=== PATIENT | male | born 1995 | race American Indian/Alaskan Native ===

== ENCOUNTER 2017-11-02 23:25 | Emergency (ER) | payer SELFPAY ==
[2017-11-03 00:36] LABS: Basophils % (Auto) 0.4 % (0.0-1.8); Eosinophils # (Auto) 0.1 K/mm3 (0.0-0.4); Eosinophils % (Auto) 1.8 % (0.0-4.3); Hematocrit 41.5 % (35.5-45.6); Hemoglobin 14.3 gm/dl (11.8-15.2); Lymphocytes # (Auto) 1.7 K/mm3 (1.2-5.4); Mean Corpuscular HGB Conc 34 % (32-34); Mean Corpuscular Hemoglobin 32 pg (28-32); Mean Corpuscular Volume 94 fl (84-94); Monocytes # (Auto) 0.4 K/mm3 (0.0-0.8); Platelet Count 240 K/mm3 (140-440); Red Blood Count 4.42 M/mm3 (3.65-5.03); Red Cell Distribution Width 12.2 % (13.2-15.2)
--- NOTE | 2017-11-03 00:37 | Emergency Department Report ---
HPI - General Time Seen by Provider: 11/03/17 00:07 - [facility] HPI: [place] [address] The patient is a 22-year-old male presenting with chief complaint of suicidal ideation. The patient states he intentionally overdose on twelve 25 mg tablets of hydroxyzine at 21:00. Patient denies any other coingestants. The patient states the medication belonged to his mother. The patient states she's been feeling suicidal for 1 day. Patient denies complaints except for mild headache. The patient's mother (Nuvia Sam [phone]) states the patient has a history of suicide attempt 3 years ago by overdosing on vitamins. Location: Mental state Duration: [See above] Quality: Suicidal Severity: Severe Modifying factors: [see above] Context: [see above] Mode of transportation: [not driving] ED Past Medical Hx - Past Medical History Previous Medical History?: No - Surgical History Past Surgical History?: No - Family History Family history: no significant - Social History Smoking Status: Never Smoker Substance Use Type: None - Medications Home Medications: Home Medications Medication Instructions Recorded Confirmed Last Taken Type levoFLOXacin [Levaquin TAB] 500 mg PO QDAY #7 tablet 11/03/17 Unknown Rx ED Review of Systems ROS: Stated complaint: SUICIDAL Other details as noted in HPI Constitutional: no symptoms reported Eyes: denies: eye pain ENT: denies: throat pain Respiratory: no symptoms reported Cardiovascular: denies: chest pain Endocrine: no symptoms reported Gastrointestinal: denies: abdominal pain Genitourinary: denies: dysuria Musculoskeletal: denies: back pain Neurological: headache Psychiatric: suicidal thoughts Physical Exam - Physical Exam Physical Exam: GENERAL: The patient is well-developed well-nourished male lying on stretcher not appearing to be in acute distress. [] HEENT: Normocephalic. Atraumatic. Extraocular motions are intact. Patient has moist mucous membranes. NECK: Supple. No meningitic signs are noted. Trachea midline CHEST/LUNGS: Clear to auscultation. There is no respiratory distress noted. HEART/CARDIOVASCULAR: Regular. There is no tachycardia. There is no gallop rub or murmur. ABDOMEN: Abdomen is soft, nontender. Patient has normal bowel sounds. There is no abdominal distention. SKIN: There is no rash. There is no edema. There is no diaphoresis. NEURO: The patient is awake, alert, and oriented. The patient is cooperative. The patient has no focal neurologic deficits. The patient has normal speech. Cranial nerves II 12 grossly intact, no drift MUSCULOSKELETAL: There is no evidence of acute injury. ED Course - Consultations Consultation #1: 11/03/17 00:49 Poison control called ED Medical Decision Making - Lab Data Result diagrams: 11/03/17 00:25 11/03/17 00:25 Laboratory Tests 11/03/17 11/03/17 11/03/17 00:25 00:25 00:25 WBC 5.2 RBC 4.42 Hgb 14.3 Hct 41.5 MCV 94 MCH 32 MCHC 34 RDW 12.2 L Plt Count 240 Lymph % (Auto) 33.0 [place] % (Auto) 8.0 H Eos % (Auto) 1.8 Baso % (Auto) 0.4 Lymph # 1.7 [place] # 0.4 Eos # 0.1 Baso # 0.0 Seg Neutrophils % 56.8 Seg Neutrophils # 3.0 Sodium 138 Potassium 3.8 Chloride 97.3 L Carbon Dioxide 25 Anion Gap 20 BUN 14 Creatinine 1.2 Estimated GFR > 60 BUN/Creatinine Ratio 12 Glucose 127 H Calcium 9.5 Total Bilirubin 0.70 AST 26 ALT 38 Alkaline Phosphatase 59 Total Protein 6.3 Albumin 4.2 Albumin/Globulin Ratio 2.0 Urine Color Urine Turbidity Urine pH Ur Specific [place] Urine Protein Urine Glucose (UA) Urine Ketones Urine Blood Urine Nitrite Urine Bilirubin Urine Urobilinogen Ur Leukocyte Esterase Urine WBC (Auto) Urine RBC (Auto) U Epithel Cells (Auto) Urine Bacteria (Auto) Urine Mucus Salicylates < 0.3 L Urine Opiates Screen Urine Methadone Screen Acetaminophen Ur Barbiturates Screen Ur Phencyclidine Scrn Ur Amphetamines Screen U Benzodiazepines Scrn Urine Cocaine Screen U Marijuana (THC) Screen Drugs of Abuse Note Plasma/Serum Alcohol 11/03/17 11/03/17 11/03/17 00:25 00:25 00:33 WBC RBC Hgb Hct MCV MCH MCHC RDW Plt Count Lymph % (Auto) [place] % (Auto) Eos % (Auto) Baso % (Auto) Lymph # [place] # Eos # Baso # Seg Neutrophils % Seg Neutrophils # Sodium Potassium Chloride Carbon Dioxide Anion Gap BUN Creatinine Estimated GFR BUN/Creatinine Ratio Glucose Calcium Total Bilirubin AST ALT Alkaline Phosphatase Total Protein Albumin Albumin/Globulin Ratio Urine Color Yellow Urine Turbidity Slightly-cloudy Urine pH 6.0 Ur Specific [place] 1.024 Urine Protein <15 mg/dl Urine Glucose (UA) Neg Urine Ketones Neg Urine Blood Neg Urine Nitrite Neg Urine Bilirubin Neg Urine Urobilinogen < 2.0 Ur Leukocyte Esterase Mod Urine WBC (Auto) 48.0 H Urine RBC (Auto) 7.0 U Epithel Cells (Auto) < 1.0 Urine Bacteria (Auto) 1+ Urine Mucus Few Salicylates Urine Opiates Screen Urine Methadone Screen Acetaminophen < 5.0 L Ur Barbiturates Screen Ur Phencyclidine Scrn Ur Amphetamines Screen U Benzodiazepines Scrn Urine Cocaine Screen U Marijuana (THC) Screen Drugs of Abuse Note Plasma/Serum Alcohol < 0.01 11/03/17 00:33 WBC RBC Hgb Hct MCV MCH MCHC RDW Plt Count Lymph % (Auto) [place] % (Auto) Eos % (Auto) Baso % (Auto) Lymph # [place] # Eos # Baso # Seg Neutrophils % Seg Neutrophils # Sodium Potassium Chloride Carbon Dioxide Anion Gap BUN Creatinine Estimated GFR BUN/Creatinine Ratio Glucose Calcium Total Bilirubin AST ALT Alkaline Phosphatase Total Protein Albumin Albumin/Globulin Ratio Urine Color Urine Turbidity Urine pH Ur Specific [place] Urine Protein Urine Glucose (UA) Urine Ketones Urine Blood Urine Nitrite Urine Bilirubin Urine Urobilinogen Ur Leukocyte Esterase Urine WBC (Auto) Urine RBC (Auto) U Epithel Cells (Auto) Urine Bacteria (Auto) Urine Mucus Salicylates Urine Opiates Screen Presumptive negative Urine Methadone Screen Presumptive negative Acetaminophen Ur Barbiturates Screen Presumptive negative Ur Phencyclidine Scrn Presumptive negative Ur Amphetamines Screen Presumptive negative U Benzodiazepines Scrn Presumptive negative Urine Cocaine Screen Presumptive negative U Marijuana (THC) Screen Presumptive negative Drugs of Abuse Note Disclamer Plasma/Serum Alcohol - EKG Data -: EKG Interpreted by Me EKG shows normal: sinus rhythm Rate: normal - EKG Data When compared to previous EKG there are: previous EKG unavailable Interpretation: normal EKG, other (QRS 84, QTC 422) - Differential Diagnosis suicidal ideation Critical care attestation.: If time is entered above; I have spent that time in minutes in the direct care of this critically ill patient, excluding procedure time. ED Disposition Clinical Impression: Suicidal ideation, Intentional hydroxyzine overdose, UTI (urinary tract infection) Disposition: [id number]/TX-[id number] PSY HOSP/PSY UNIT Is pt being admited?: No Does the pt Need Aspirin: No Condition: Serious Prescriptions: levoFLOXacin [Levaquin TAB] 500 mg PO QDAY #7 tablet Referrals: PRIMARY CARE, [Primary Care Provider] - 3-5 Days Time of Disposition: 01:26 (awaiting acceptance)
[2017-11-03 00:53] LABS: Bacteria,Urine 1+ /HPF (Negative); Bilirubin,Urine NEG (Negative); Blood,Urine NEG (Negative); Color,Urine Yellow (Yellow); Mucus,Urine FEW /HPF; Protein,Urine <15 mg/dL mg/dL (Negative); Urobilinogen,Urine < 2.0 mg/dL (<2.0)
[2017-11-03 01:00] LABS: Amphetamine Screen,Urine PRESUMPTIVE NEGATIVE; Benzodiazepines Screen,Urine PRESUMPTIVE NEGATIVE; Cannabinoid Screen,Urine PRESUMPTIVE NEGATIVE; Cocaine Screen,Urine PRESUMPTIVE NEGATIVE; Methadone Screen,Urine PRESUMPTIVE NEGATIVE; Opiate Screen,Urine PRESUMPTIVE NEGATIVE
[2017-11-03] MEDS ORDERED: LEVAQUIN PO ONE (01:00)
[2017-11-03 01:06] LABS: Alanine Aminotransferase 38 units/L (7-56); Albumin 4.2 g/dL (3.9-5); BUN/Creatinine Ratio 12; Blood Urea Nitrogen 14 mg/dL (9-20); Calcium 9.5 mg/dL (8.4-10.2); Hemolysis Index 12
--- NOTE | 2017-11-03 14:09 | Consultation ---
History of Present Illness - Reason for Consult Consult date: 11/03/17 Reason for consult: Mental Health Evaluation Requesting physician: CANDICE GATES - Chief Complaint Chief complaint: "I was overwhelmed" - History of Present Psychiatric Illness 22-year-old AA male presenting to the ER for overdosing on Vistaril. Today the patient is calm and cooperative during the assessment. He stated that he was overwhelmed, felt sad, and hopeless when he took 12 Vistaril pills that belongs to his mother. He stated that he found out that his girlfriend was "cheating" during their relationship. He stated that his girlfriend didn't care how he felt when he found out about her infidelity. He stated that he took the pill because he didn't know what else to do. He would not confirm or deny that he was trying to kill himself. He stated that he gave his everything to his relationship. He stated that he attempted suicide 3 yrs ago by taking several pills to kill himself. He can't remember if he saw a psychiatrist after that attempt. He stated that his life have been "dysfunctional" for awhile because his mother spent time in skilled nursing which caused him to reside with several family members. He stated that the constant moving is one of the reasons why he didn't graduate from high school. He denies SI/HI's and AVH's. He denies erratic sleep and a poor appetite. He denies recreational drug use and alcohol consumption ( etoh). The patient prefer therapy at this time instead of taking medication for depression. Medications and Allergies Home Medications Medication Instructions Recorded Confirmed Last Taken Type levoFLOXacin [Levaquin TAB] 500 mg PO QDAY #7 tablet 11/03/17 Unknown Rx Past psychiatric history - Past Medical History Past Medical History: No medical history Past Surgical History: No surgical history - past Psychiatric treatment and history psychiatric treatment history: The patient acknowledged a suicide attempt 3 ys ago. Fam hx of anxiety. - Social History Social history: lives with family Mental Status Exam - Vital signs Last Vital Signs Temp 99.2 F 11/03/17 00:18 Pulse 89 11/03/17 00:18 Resp 18 11/03/17 00:18 BP 139/84 11/03/17 00:18 Pulse Ox 99 11/03/17 00:18 - Exam Narrative exam: MSE: Appearance: calm, cooperative Behavior: regular eye contact Speech: regular rate and tone Mood: "okay" Affect: congruent to mood Thought Process: circumstantial Thought Content: denies SI/HI's and AVH's Motor Activity: ambulatory Cognition: A/O x 3 Insight: variable Judgment: variable Results Result Diagrams: 11/03/17 00:25 11/03/17 00:25 Abnormal lab results 11/03/17 11/03/17 11/03/17 Range/Units 00:25 00:25 00:25 RDW 12.2 L (13.2-15.2) % [place] % (Auto) 8.0 H (0.0-7.3) % Chloride 97.3 L (98-107) mmol/L Glucose 127 H (75-100) mg/dL Urine WBC (Auto) (0.0-6.0) /HPF Salicylates < 0.3 L (2.8-20.0) mg/dL Acetaminophen (10.0-30.0) ug/mL 11/03/17 11/03/17 Range/Units 00:25 00:33 RDW (13.2-15.2) % [place] % (Auto) (0.0-7.3) % Chloride (98-107) mmol/L Glucose (75-100) mg/dL Urine WBC (Auto) 48.0 H (0.0-6.0) /HPF Salicylates (2.8-20.0) mg/dL Acetaminophen < 5.0 L (10.0-30.0) ug/mL All other labs normal. Assessment and Plan Assessment and plan: Impression: MDD, Severe Type recurrent. Today the patient is calm and cooperative during the assessment. UDS is negative. DDx: R/O Bipolar DO Recommendation/Plan: Continue 1013 with placement to inpatient psy services. Risk/Benefits discussed with patient reference antidepressant for depression. At this time the patient prefer therapy.
[2017-11-03 14:19] VITALS: BP 131/74
--- NOTE | 2017-11-03 14:19 | Emergency Department Report ---
Blank Doc - Documentation Documentation: This is a 22-year-old male that took hydroxyzine as a potential overdose with suicidal thought. The quantity of his medicine is not likely to be significant. He was observed in the emergency department and has had no complication for an ample period of observation. Therefore, he is medically cleared for psychiatric disposition.
== END 2017-11-03 19:50 ==
LOC: ED 23:25 → EEVIPCON 23:25 → ED 11-03 19:50
DX: T43.592A Poisoning by other antipsychotics and neuroleptics, intentional self-harm, initial encounter (principal); F32.9 Major depressive disorder, single episode, unspecified; N39.0 Urinary tract infection, site not specified; Y92.89 Other specified places as the place of occurrence of the external cause
CPT/HCPCS: 36415; 80053; 80307; 81001; 85025; 93005; 93010; 99285; G0480; 80320